=== PATIENT | male | born 1985 | race Caucasian/White ===

== ENCOUNTER 2019-11-19 14:55 | Emergency (ER) | payer OTHER, SELFPAY ==
[2019-11-19] MEDS ORDERED: LIDOCAINE 1% MPF 5 ML VIAL ONE (15:14)
--- NOTE | 2019-11-19 15:27 | ER ---
Nurse's Notes [facility] Name: Omid Santos Age: 34 yrs Sex: Male : 1985 Arrival Date: 11/19/2019 Time: 14:58 Bed 24 Private MD: Diagnosis: Bitten by dog Presentation: 11/18 15:04 Chief complaint: Patient states: Dog bite to right forearm and right side of back. Has ll1 been reported. Coronavirus screen: Proceed with normal triage. Patient denies a cough. Patient denies shortness of breath or difficulty breathing. Patient denies measured and/or subjective temperature greater than 100.4F prior to today's visit. Patient denies travel on a cruise ship or to a country the [facility] currently lists as an affected area. Patient denies contact with known and/or suspected case of COVID-19. Ebola Screen: Patient denies travel to an Ebola-affected area in the 21 days before illness onset. Initial Sepsis Screen: Does the patient meet any 2 criteria? No. Patient's initial sepsis screen is negative. Does the patient have a suspected source of infection? No. Patient's initial sepsis screen is negative. Risk Assessment: Do you want to hurt yourself or someone else? Patient reports no desire to harm self or others. Onset of symptoms was November 19, 2019. 15:04 Method Of Arrival: Ambulatory ll1 15:04 Acuity: JEAN 4 ll1 Triage Assessment: 16:20 Bite description: bite sustained to left subscapular area and dorsal aspect of right vc forearm by a dog, animal information: vaccination(s) is unknown. General: Appears in no apparent distress. comfortable, Behavior is calm, cooperative, appropriate for age. Pain: Complains of pain in dorsal aspect of right forearm Pain currently is 2 out of 10 on a pain scale. Pain: Complains of pain in left subscapular area Pain currently is 4 out of 10 on a pain scale. Historical: - Allergies: 15:08 No Known Allergies; ll1 - PMHx: 15:08 None; ll1 - PSHx: 15:08 None; ll1 - Immunization history:: Last tetanus immunization: up to date. - Social history:: Smoking status: Patient denies any tobacco usage or history of. Patient uses alcohol, only on a social basis. Patient/guardian denies using street drugs. Screenin:15 Abuse screen: Denies threats or abuse. Nutritional screening: No deficits noted. vc Tuberculosis screening: No symptoms or risk factors identified. Fall Risk None identified. Assessment: 15:05 Derm: Skin laceration to right arm, puncture to left shoulder blade. Skin is pink, warm vc \T\ dry. 15:15 Reassessment: Patient appears in no apparent distress at this time. Patient and/or vc family updated on plan of care and expected duration. Pain level reassessed. Patient is alert, oriented x 3, equal unlabored respirations, skin warm/dry/pink. 15:15 General: Appears in no apparent distress. comfortable, Behavior is calm, cooperative, vc appropriate for age. Pain: Complains of pain in left subscapular area and dorsal aspect of right forearm. Neuro: Level of Consciousness is awake, alert, obeys commands, Oriented to person, place, time, situation, Appropriate for age. Cardiovascular: Capillary refill < 3 seconds Patient's skin is warm and dry. Respiratory: Airway is patent Respiratory effort is even, unlabored, Respiratory pattern is regular, symmetrical. GI: No signs and/or symptoms were reported involving the gastrointestinal system. : No signs and/or symptoms were reported regarding the genitourinary system. Musculoskeletal: No signs and/or symptoms reported regarding the musculoskeletal system. Circulation, motion, and sensation intact. Range of motion: intact in all extremities. Vital Signs: 15:04 BP 147 / 90; Pulse 84; Resp 16; Temp 98.0; Pulse Ox 98% ; Pain 2/10; ll1 ED Course: 14:58 Patient arrived in ED. mr 14:59 Shobha Ford F[facility]-C [facility]. kb 14:59 Corina Toussaint MD is Attending Physician. kb 15:06 Triage completed. ll1 15:09 Arm band placed on Patient placed in an exam room, on a stretcher. ll1 15:14 Juana Ann, BO is Primary Nurse. vc 15:15 Assist provider with laceration repair on dorsal aspect of right forearm that was 2.5 vc cm. or less using sutures. Set up tray. Performed by Shobha BRADLEY Dressed with 4X4s, Neosporin, Patient tolerated well. Patient did not have IV access during this emergency room visit. IV discontinued. 15:35 Patient has correct armband on for positive identification. Bed in low position. vc Administered Medications: 15:35 Drug: Lidocaine (1 %) 1 vials Volume: 5 ml; Route: Infiltration; vc 15:35 Drug: Augmentin 875 mg Route: PO; vc 15:35 Follow up: Response: No adverse reaction vc 15:35 Follow up: Response: No adverse reaction; Medication administered at discharge. vc Outcome: 15:27 Discharge ordered by . chris 15:35 Discharged to home ambulatory. vc 15:35 Condition: good 15:35 Discharge instructions given to patient, Instructed on discharge instructions, follow up and referral plans. medication usage, Demonstrated understanding of instructions, follow-up care, medications, Prescriptions given X 1. 15:36 Patient left the ED. vc Signatures: Shobha Ford, DUST MOP MAKERCadenC DUST MOP MAKER-Liseth Patel Juana Ann, RN RN Dang Garcia RN RN ll1
--- NOTE | 2019-11-19 15:27 | EDPHYS ---
Physician Documentation [facility] Name: Omid Santos Age: 34 yrs Sex: Male : 1985 Arrival Date: 11/19/2019 Time: 14:58 Bed 24 Private MD: ED Physician Corina Toussaint HPI: 11/18 15:12 This 34 yrs old Male presents to ER via Ambulatory with complaints of Dog kb Bite. 15:12 The patient was bitten on the dorsal aspect of right forearm, by a dog, while kb approaching the animal, outdoors, at work. Onset: The symptoms/episode began/occurred just prior to arrival. Animal information: is unknown, The animal is unknown but captured. Animal control has been notified. Secondary to the bite the patient reports a laceration, that is superficial, 1 cm(s). Associated signs and symptoms: The patient has no apparent associated signs or symptoms. Severity of symptoms: At their worst the symptoms were mild, in the emergency department the symptoms are unchanged. The patient has not experienced similar symptoms in the past. The patient has not recently seen a physician. Historical: - Allergies: 15:08 No Known Allergies; ll1 - PMHx: 15:08 None; ll1 - PSHx: 15:08 None; ll1 - Immunization history:: Last tetanus immunization: up to date. - Social history:: Smoking status: Patient denies any tobacco usage or history of. Patient uses alcohol, only on a social basis. Patient/guardian denies using street drugs. ROS: 15:10 Constitutional: Negative for fever, chills, and weight loss, Cardiovascular: Negative kb for chest pain, palpitations, and edema, Respiratory: Negative for shortness of breath, cough, wheezing, and pleuritic chest pain, Abdomen/GI: Negative for abdominal pain, nausea, vomiting, diarrhea, and constipation, Back: Negative for injury and pain, MS/Extremity: Negative for injury and deformity, Neuro: Negative for headache, weakness, numbness, tingling, and seizure. 15:10 Skin: Positive for laceration(s), of the dorsal aspect of right forearm. Exam: 15:10 Constitutional: This is a well developed, well nourished patient who is awake, alert, kb and in no acute distress. Head/Face: Normocephalic, atraumatic. ENT: Nares patent. No nasal discharge, no septal abnormalities noted. Tympanic membranes are normal and external auditory canals are clear. Oropharynx with no redness, swelling, or masses, exudates, or evidence of obstruction, uvula midline. Mucous membranes moist. Neck: Trachea midline, no thyromegaly or masses palpated, and no cervical lymphadenopathy. Supple, full range of motion without nuchal rigidity, or vertebral point tenderness. No Meningismus. Chest/axilla: Normal chest wall appearance and motion. Nontender with no deformity. No lesions are appreciated. Cardiovascular: Regular rate and rhythm with a normal S1 and S2. No gallops, murmurs, or rubs. Normal PMI, no JVD. No pulse deficits. Respiratory: Lungs have equal breath sounds bilaterally, clear to auscultation and percussion. No rales, rhonchi or wheezes noted. No increased work of breathing, no retractions or nasal flaring. Abdomen/GI: Soft, non-tender, with normal bowel sounds. No distension or tympany. No guarding or rebound. No evidence of tenderness throughout. MS/ Extremity: Pulses equal, no cyanosis. Neurovascular intact. Full, normal range of motion. Neuro: Awake and alert, GCS 15, oriented to person, place, time, and situation. Cranial nerves II-XII grossly intact. Motor strength 5/5 in all extremities. Sensory grossly intact. Cerebellar exam normal. Normal gait. 15:10 Skin: injury, bite(s), superficial, of the dorsal aspect of right forearm. 15:26 Skin: injury, bite(s), superficial, of the left subscapular area. Vital Signs: 15:04 BP 147 / 90; Pulse 84; Resp 16; Temp 98.0; Pulse Ox 98% ; Pain 2/10; ll1 Laceration: 15:26 Wound Repair of 1.5cm ( 0.6in ) subcutaneous laceration to dorsal aspect of right kb forearm. Linear shaped.. Distal neuro/vascular/tendon intact. Anesthesia: Wound infiltrated with 2 mls of 1% lidocaine. Wound prep: Extensive cleansing with hibiclenz by nc, Wound irrigation with saline by nc. Skin closed with 2 5-0 Prolene using simple sutures and sterile technique. Dressed with Neosporin. Patient tolerated well. MDM: 14:59 Patient medically screened. kb 15:11 Data reviewed: vital signs, nurses notes. Data interpreted: Pulse oximetry: on room air kb is 98 %. Interpretation: normal. 15:26 Counseling: I had a detailed discussion with the patient and/or guardian regarding: the kb historical points, exam findings, and any diagnostic results supporting the discharge/admit diagnosis, the need for outpatient follow up, a family practitioner, to return to the emergency department if symptoms worsen or persist or if there are any questions or concerns that arise at home. 11/18 15:14 Order name: Vicryl, Sutures; Complete Time: 15:18 kb 11/18 15:14 Order name: Dressing - Wound; Complete Time: 15:17 kb 11/18 15:14 Order name: Gloves, Sterile; Complete Time: 15:17 kb 11/18 15:14 Order name: Setup Suture Tray; Complete Time: 15:17 kb Administered Medications: 15:35 Drug: Lidocaine (1 %) 1 vials Volume: 5 ml; Route: Infiltration; vc 15:35 Drug: Augmentin 875 mg Route: PO; vc 15:35 Follow up: Response: No adverse reaction vc 15:35 Follow up: Response: No adverse reaction; Medication administered at discharge. vc Disposition: 17:23 Co-signature as Attending Physician, Corina Toussaint MD. ma2 Disposition: 11/19/19 15:27 Discharged to Home. Impression: Bitten by dog. - Condition is Stable. - Discharge Instructions: Animal Bite, [id number]. - Prescriptions for Augmentin 875- 125 mg Oral Tablet - take 1 tablet by ORAL route every 12 hours for 7 days; 14 tablet. - Medication Reconciliation Form, Thank You Letter, Antibiotic Education, Prescription Opioid Use form. - Follow up: Emergency Department; When: As needed; Reason: Worsening of condition. Follow up: Private Physician; When: 2 - 3 days; Reason: Recheck today's complaints, Continuance of care, Re-evaluation by your physician. Signatures: Shobha Ford, BG-C BG-Corina Claros MD MD ma2 Juana Ann RN RN Dang Garcia RN RN ll1 Corrections: (The following items were deleted from the chart) 15:26 15:10 Skin: injury, bite(s), superficial, of the dorsal aspect of right forearm, kb kb 15:36 15:27 11/19/2019 15:27 Discharged to Home. Impression: Bitten by dog. Condition is vc Stable. Forms are Medication Reconciliation Form, Thank You Letter, Antibiotic Education, Prescription Opioid Use. Follow up: Emergency Department; When: As needed; Reason: Worsening of condition. Follow up: Private Physician; When: 2 - 3 days; Reason: Recheck today's complaints, Continuance of care, Re-evaluation by your physician. kb
[2019-11-19] MEDS ORDERED: AMOX/K CLAV 875 MG TAB ONE (15:36)
[2019-11-19 15:41] VITALS: BP 147/90; TEMP 98; O2SAT 98
== END 2019-11-19 15:36 | disposition home or self-care (01) ==
LOC: ER 14:55
PROC: 0JQG0ZZ Repair Right Lower Arm Subcutaneous Tissue and Fascia, Open Approach (ICD-10-PCS; principal; 2019-11-19)
DX: S51.851A Open bite of right forearm, initial encounter (principal); W54.0XXA Bitten by dog, initial encounter; Y99.0 Civilian activity done for income or pay
CPT/HCPCS: 99283